=== PATIENT | male | born 1965 | race American Indian/Alaskan Native ===

== ENCOUNTER 2020-06-30 06:31 | Emergency (ER) | payer SELFPAY ==
[2020-06-30 07:14] VITALS: BP 157/108
[2020-06-30] MEDS ORDERED: KETOROLAC 30 MG/1 ML INJ IM ONE (07:16)
[2020-06-30] MEDS ORDERED: dexAMETHasone 20 MG/5 ML VIAL IM ONE (07:16)
--- NOTE | 2020-06-30 07:18 | Emergency Department Report ---
ED Extremity Problem HPI - General Chief complaint: Extremity Problem,Nontraumatic Stated complaint: GOUT Time Seen by Provider: 06/30/20 07:13 Source: patient, old records reviewed Mode of arrival: Ambulatory Limitations: No Limitations - History of Present Illness Initial comments: 55-year-old -[place] male presents to the emergency room complaining of gout to his left knee that started yesterday. Patient states that he thinks drinking coffee had flared it up. Patient states he does not eat any meat does not eat seafood does not drink beer. Patient denies any injuries. Patient has a past medical history of hypertension as well as gout. Patient states that he takes lisinopril 20 mg daily. Patient does endorse that he did not take it today secondary to his gout flareup. MD Complaint: joint swelling, joint paint Onset/Timin -: days(s) Location: left, knee History of Same: Yes Severity scale (0 -10): 9 Quality: stabbing, aching Consistency: constant Improves with: nothing Worsens with: walking, palpation Associated Symptoms: denies other symptoms - Related Data Previous Rx's Medication Instructions Recorded Last Taken Type HYDROcodone/APAP 10-325 [[place] 1 each PO Q4-6H PRN #20 tablet 12/29/13 Unknown Rx 10-325 mg TAB] Indomethacin Sr (Nf) [Indocin Sr] 75 mg PO Q12HR #30 capsule.er 12/29/13 Unknown Rx Probenecid/Colchicine 1 each PO DAILY #10 tablet 12/29/13 Unknown Rx [Probenecid-Colchicine Tab] Acetaminophen/Codeine [Tylenol #3] 1 tab PO Q6H PRN #20 tab 02/28/15 Unknown Rx HYDROcodone/APAP 7.5-325 [[place] 1 each PO Q6HR PRN #20 tablet 06/30/20 Unknown Rx 7.5-325 mg TAB] Indomethacin 50 mg PO Q8H #30 capsule 06/30/20 Unknown Rx predniSONE [Deltasone] 50 mg PO QDAY #5 tab 06/30/20 Unknown Rx Allergies Allergy/AdvReac Type Severity Reaction Status Date / Time No Known Allergies Allergy Verified 02/27/15 23:07 ED Review of Systems ROS: Stated complaint: GOUT Other details as noted in HPI ED Past Medical Hx - Past Medical History Previous Medical History?: Yes Additional medical history: gout - Surgical History Past Surgical History?: Yes Additional Surgical History: l) knee surg - Social History Smoking Status: Never Smoker Substance Use Type: Alcohol - Medications Home Medications: Home Medications Medication Instructions Recorded Confirmed Last Taken Type HYDROcodone/APAP 10-325 [[place] 1 each PO Q4-6H PRN #20 tablet 12/29/13 Unknown Rx 10-325 mg TAB] Indomethacin Sr (Nf) [Indocin Sr] 75 mg PO Q12HR #30 capsule.er 12/29/13 Unknown Rx Probenecid/Colchicine 1 each PO DAILY #10 tablet 12/29/13 Unknown Rx [Probenecid-Colchicine Tab] Acetaminophen/Codeine [Tylenol #3] 1 tab PO Q6H PRN #20 tab 02/28/15 Unknown Rx HYDROcodone/APAP 7.5-325 [[place] 1 each PO Q6HR PRN #20 tablet 06/30/20 Unknown Rx 7.5-325 mg TAB] Indomethacin 50 mg PO Q8H #30 capsule 06/30/20 Unknown Rx predniSONE [Deltasone] 50 mg PO QDAY #5 tab 06/30/20 Unknown Rx ED Physical Exam - General Limitations: No Limitations General appearance: alert, in no apparent distress - Head Head exam: Present: atraumatic, normocephalic - Eye Eye exam: Present: normal appearance - ENT ENT exam: Present: normal exam - Neck Neck exam: Present: full ROM - Respiratory Respiratory exam: Absent: accessory muscle use - Cardiovascular Cardiovascular Exam: Present: regular rate - Expanded Lower Extremity Exam Left Hip exam: Present: normal inspection Upper Leg exam: Present: normal inspection Knee exam: Present: tenderness, swelling, erythema Lower Leg exam: Present: normal inspection, full ROM Ankle exam: Present: normal inspection, full ROM Foot/Toe exam: Present: normal inspection, full ROM Neuro vascular tendon exam: Present: no vascular compromise Gait: Positive: observed and limited by pain - Back Exam Back exam: Present: normal inspection, full ROM - Neurological Exam Neurological exam: Present: alert, oriented X3 - Psychiatric Psychiatric exam: Present: normal affect, normal mood - Skin Skin exam: Present: warm, dry, intact, normal color. Absent: rash ED Medical Decision Making - Medical Decision Making 55-year-old -[place] male presents to the emergency room complaining of gout to his left knee that started yesterday. Patient states that he thinks drinking coffee had flared it up. Patient states he does not eat any meat does not eat seafood does not drink beer. Patient denies any injuries. Patient is given Toradol 30 mg IM dexamethasone 10 mg IM colchicine 1.2 mg p.o. Patient be discharged home with indomethacin, [place], prednisone pack and encouraged to take his colchicine that he has at home. Discussed the patient is to drink a gallon of water a day. Avoid offending triggers. Critical care attestation.: If time is entered above; I have spent that time in minutes in the direct care of this critically ill patient, excluding procedure time. ED Disposition Clinical Impression: Gout flare Disposition: - TO HOME OR SELFCARE Is pt being admited?: No Does the pt Need Aspirin: No Condition: Stable Instructions: Uric Acid Nephropathy Additional Instructions: Take medications as prescribed. Please avoid trigger foods that flare your gout. Sure to drink at least a gallon of water a day for the next 2 or 3 days. Prescriptions: predniSONE [Deltasone] 50 mg PO QDAY #5 tab Indomethacin 50 mg PO Q8H #30 capsule HYDROcodone/APAP 7.5-325 [[place] 7.5-325 mg TAB] 1 each PO Q6HR PRN #20 tablet PRN Reason: Pain Referrals: SANIYA MCARTHUR MD [Staff Physician] - 3-5 Days Forms: Work/School Release Form(ED)
[2020-06-30] MEDS ORDERED: COLCHICINE 0.6 MG TAB PO ONE (08:00)
[2020-06-30 08:25] LABS: BUN/Creatinine Ratio 12; Blood Urea Nitrogen 16 mg/dL (9-20); Calcium 9.5 mg/dL (8.4-10.2); Hemolysis Index 7
== END 2020-06-30 08:59 | disposition home or self-care (01) ==
LOC: ED 06:31
DX: M10.9 Gout, unspecified (principal); Z79.899 Other long term (current) drug therapy; Z98.890 Other specified postprocedural states
CPT/HCPCS: 36415; 80048; 82962; 96372; 99283; J1100; J1885

== ENCOUNTER 2021-07-27 09:53 | Emergency (ER) | payer SELFPAY ==
[2021-07-27 10:19] VITALS: BP 133/90
[2021-07-27] MEDS ORDERED: methylPREDNISolone ACETATE 80 MG/1 ML INJ IM ONE (10:43)
[2021-07-27] MEDS ORDERED: KETOROLAC 30 MG/1 ML INJ IM ONE (10:43)
--- NOTE | 2021-07-27 10:46 | Emergency Department Report ---
ED General Adult HPI - General Chief complaint: Extremity Injury, Lower Stated complaint: LT FOOT GOUT PAIN Time Seen by Provider: 07/27/21 10:33 Source: patient Mode of arrival: Ambulatory Limitations: No Limitations - History of Present Illness Initial comments: Patient presents with left foot pain is secondary to gout. He has a long history of gout. He is on multiple medications at home for gout prevention. Over the last 1 to 2 days he has had increasing pain in the left first MTP area. He was concerned because he has had this before and it progresses to other joints. He wanted to come in and "get it fixed." There is no trauma. Has no fevers or chills. There is no other joint involvement. Has no other arthralgias or myalgias. He has no cough or congestion. Sometimes he states that he needs a shot of steroids and that seems to make things better. This is the same sharp and burning pain that he has had with gout before. It is worse with ambulation and palpation. Severity scale (0 -10): 10 - Related Data Previous Rx's Medication Instructions Recorded Last Taken Type HYDROcodone/APAP 10-325 [[place] 1 each PO Q4-6H PRN #20 tablet 12/29/13 Unknown Rx 10-325 mg TAB] Indomethacin Sr (Nf) [Indocin Sr] 75 mg PO Q12HR #30 capsule.er 12/29/13 Unknown Rx Probenecid/Colchicine 1 each PO DAILY #10 tablet 12/29/13 Unknown Rx [Probenecid-Colchicine Tab] Acetaminophen/Codeine [Tylenol #3] 1 tab PO Q6H PRN #20 tab 02/28/15 Unknown Rx HYDROcodone/APAP 7.5-325 [[place] 1 each PO Q6HR PRN #20 tablet 06/30/20 Unknown Rx 7.5-325 mg TAB] Indomethacin 50 mg PO Q8H #30 capsule 06/30/20 Unknown Rx predniSONE [Deltasone] 50 mg PO QDAY #5 tab 06/30/20 Unknown Rx methylPREDNISolone [Medrol 4MG 4 mg PO DAILY #1 pack 07/27/21 Unknown Rx DOSEPAK (21 tabs)] Allergies Allergy/AdvReac Type Severity Reaction Status Date / Time No Known Allergies Allergy Verified 02/27/15 23:07 ED Review of Systems ROS: Stated complaint: LT FOOT GOUT PAIN Other details as noted in HPI Comment: All other systems reviewed and negative Constitutional: denies: fever Eyes: denies: eye pain ENT: denies: throat pain Respiratory: denies: cough Cardiovascular: denies: chest pain Endocrine: denies: unexplained weight loss Gastrointestinal: denies: abdominal pain Genitourinary: denies: dysuria Musculoskeletal: as per HPI. denies: back pain Skin: denies: rash Neurological: denies: headache Hematological/Lymphatic: denies: easy bruising ED Past Medical Hx - Past Medical History Additional medical history: gout - Surgical History Additional Surgical History: l) knee surg - Family History Family history: no significant - Social History Smoking Status: Never Smoker Substance Use Type: Alcohol - Medications Home Medications: Home Medications Medication Instructions Recorded Confirmed Last Taken Type HYDROcodone/APAP 10-325 [[place] 1 each PO Q4-6H PRN #20 tablet 12/29/13 Unknown Rx 10-325 mg TAB] Indomethacin Sr (Nf) [Indocin Sr] 75 mg PO Q12HR #30 capsule.er 12/29/13 Unknown Rx Probenecid/Colchicine 1 each PO DAILY #10 tablet 12/29/13 Unknown Rx [Probenecid-Colchicine Tab] Acetaminophen/Codeine [Tylenol #3] 1 tab PO Q6H PRN #20 tab 02/28/15 Unknown Rx HYDROcodone/APAP 7.5-325 [[place] 1 each PO Q6HR PRN #20 tablet 06/30/20 Unknown Rx 7.5-325 mg TAB] Indomethacin 50 mg PO Q8H #30 capsule 06/30/20 Unknown Rx predniSONE [Deltasone] 50 mg PO QDAY #5 tab 06/30/20 Unknown Rx methylPREDNISolone [Medrol 4MG 4 mg PO DAILY #1 pack 07/27/21 Unknown Rx DOSEPAK (21 tabs)] ED Physical Exam - General Limitations: No Limitations, Other (Pulse ox noted and normal) General appearance: alert, in no apparent distress - Head Head exam: Present: atraumatic, normocephalic - Eye Eye exam: Present: normal appearance, EOMI - ENT ENT exam: Present: normal external ear exam - Neck Neck exam: Present: normal inspection - Respiratory Respiratory exam: Absent: respiratory distress - Cardiovascular Cardiovascular Exam: Absent: JVD - Extremities Exam Extremities exam: Present: normal capillary refill, other (Tenderness over the left MTP area with mild warmth and erythema consistent with gout. Pulses are equal and symmetric bilaterally.) - Back Exam Back exam: Present: full ROM - Neurological Exam Neurological exam: Present: alert, oriented X3, abnormal gait (Antalgic). Absent: motor sensory deficit - Psychiatric Psychiatric exam: Present: normal affect, normal mood - Skin Skin exam: Present: warm, dry ED Course Vital Signs 07/27/21 10:18 Temperature 98.1 F Pulse Rate 90 Respiratory 18 Rate Blood Pressure 133/90 [Right] O2 Sat by Pulse 98 Oximetry - Reevaluation(s) Reevaluation #1: 07/27/21 11:30 Patient was treated and discharged ED Medical Decision Making - Medical Decision Making Patient presents with a gout exacerbation. He has a monoarticular arthritis in the first MTP area that would be consistent with gout and his prior history of such. There is no trauma to suggest acute fracture or dislocation. He has good pulses with brisk capillary refill. I do not believe this represents any vascular injury. Patient does not have history of fever and does not report any other infectious symptoms. I do not believe this represents a septic arthritis given his presentation. Critical Care Time: No Critical care attestation.: If time is entered above; I have spent that time in minutes in the direct care of this critically ill patient, excluding procedure time. ED Disposition Clinical Impression: Gout due to renal impairment involving toe of left foot Qualifiers: Chronicity: acute Qualified Code(s): M10.372 - Gout due to renal impairment, left ankle and foot Disposition: 01 HOME / SELF CARE / HOMELESS Is pt being admited?: No Condition: Stable Instructions: Low-Purine Eating Plan Additional Instructions: ELEVATE. RETURN FOR PROBLEMS. SEE YOUR DOCTOR FOR RECHECK. Prescriptions: methylPREDNISolone [Medrol 4MG DOSEPAK (21 tabs)] 4 mg PO DAILY #1 pack Referrals: PRIMARY CAREMD [Referring] - 3-5 Days MORGAN MARTINEZ MD [Staff Physician] - 3-5 Days
== END 2021-07-27 12:08 | disposition home or self-care (01) ==
LOC: ED 09:53
DX: M10.372 Gout due to renal impairment, left ankle and foot (principal); Z98.890 Other specified postprocedural states
CPT/HCPCS: 96372; 99282; J1040; J1885